=== PATIENT | male | born 1955 | race Caucasian/White ===

== ENCOUNTER → 2017-08-24 | Day surgery (SDC) | payer OTHER ==
[~2017-08-24] VITALS: Ht 185.4 cm; Wt 100.2 kg
[~2017-08-24] MED LIST: BACITRACIN TOP OINT 15 GM TUBE ONE; BUPIVACAINE HCL PF 0.5% 30 ML VIAL ONE; CHLORHEXIDINE GLUCONATE 2 % 1 PACK (2 CLOTHS) TOPICAL PRN; DO NOT ADM ANY ANTICOAGULANT DRUGS PRN; INSULIN HUMAN REGULAR 1,000 UNITS/10 ML VIAL SQ PRN; LACTATED RINGER'S 1000 ML INJ 1,000 ML IV SCH; LACTATED RINGER'S 1000 ML INJ 1,000 ML ONE; LACTATED RINGER'S 1000 ML IV PRN; LEVO25TA4 PO; LIDOCAINE HCL 1% PF 5 ML AMPULE OTHER ONE; LIDOCAINE HCL 2% 50 ML VIAL ONE; METOPROLOL TARTRATE 25 MG TAB PO PRN; MIDAZOLAM HCL 2 MG/2 ML VIAL IV ONE; MORPHINE SULFATE 8 MG/ML INJ ONE; ONDANSETRON HCL 4 MG/2 ML VIAL IV PUSH ONE; OXYC1CAP PO; POVIDONE IODINE 5% (ANTISEPSIS KIT) 4 APPLICATIONS EACH NARE PRN; PROPOFOL 200 MG/20 ML AMP IV ONE; SODIUM CHLORID 0.9% 500 ML IV PRN; ceFAZolin 2 GM PREMIX 50 ML IV SCH; ceFAZolin 2 GM PREMIX 50 ML ONE; ePHEDrine/NS 25 MG/5 ML SYR IV ONE
[2017-08-24 12:25] LABS: AUTOMATED NEUTROPHIL # 3.5 TH/MM3 (1.8-7.7); BASOPHIL % 0.5 % (0.0-2.0); EOSINOPHIL # 0.2 TH/MM3 (0-0.4); EOSINOPHIL % 3.2 % (0.0-4.0); HEMATOCRIT 42.5 % (39.0-51.0); HEMO FLAGS DIFF FINAL; LYMPH % 32.4 % (9.0-44.0); MEAN CELL VOLUME 88.8 FL (80.0-100.0); MEAN CORPUSCULAR HEMOGLOBIN 30.3 PG (27.0-34.0); MEAN CORPUSCULAR HGB CONC 34.1 % (32.0-36.0); MONO % 7.7 % (0.0-8.0); NEUT % 56.2 % (16.0-70.0); PLATELET COUNT 183 TH/MM3 (150-450); RED BLOOD COUNT 4.79 MIL/MM3 (4.50-5.90); RED CELL DISTRIBUTION WIDTH 14.1 % (11.6-17.2); WHITE BLOOD COUNT 6.2 TH/MM3 (4.0-11.0)
--- NOTE | 2017-08-24 17:14 | PD.OP ---
Operative Report Preoperative Diagnosis: (1) Carpal tunnel syndrome, right (2) Closed dorsal Corrigan's fracture of right radius (3) Subluxation of radiocarpal joint of right wrist, initial encounter Postoperative Diagnosis: (1) Carpal tunnel syndrome, right (2) Subluxation of radiocarpal joint of right wrist, initial encounter (3) Closed dorsal Corrigan's fracture of right radius Procedure: open reduction and internal fixation intra articular fracture distal radius right side reduction of subluxation radio carpal joint right wrist extended carpal tunnel release right wrist Anesthesia: general Surgeon: Norman Wheeler [employer]ship(s): greg Operation and Findings: dorsal shear fracture with subluxation of the radio carpal joint right wrist displaced radial styloid process fracture right wrist Norman Wheeler MD Aug 24, 2017 17:14
[2017-08-24 18:42] VITALS: BP 160/97; PULSE 73; RESP 16; TEMP 97; O2SAT 94
--- NOTE | 2017-08-24 21:41 | EKG ---
Date Performed: 08/24/2017 Time Performed: 11:27:01 PTAGE: 62 years EKG: SINUS BRADYCARDIA BORDERLINE ECG NO PREVIOUS TRACING DOCTOR: Albino Chang Interpretating Date/Time 08/24/2017 21:38:26
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
== END | disposition home or self-care (01) ==
LOC: HSDC 11:01
PROVIDERS: ATTEND Surgery Surgery of the Hand
DX: G56.01 Carpal tunnel syndrome, right upper limb (principal); S52.561A Barton's fracture of right radius, initial encounter for closed fracture; S63.021A Subluxation of radiocarpal joint of right wrist, initial encounter; R00.1 Bradycardia, unspecified; V29.9XXA Motorcycle rider (driver) (passenger) injured in unspecified traffic accident, initial encounter
CPT/HCPCS: 01810; 01830; 25609; 25670; 64721; 85025; 93005; J0690; J2270; J7120; J2250; J2405; J3010